=== PATIENT | male | born 1965 | race African-American/Black ===

== ENCOUNTER 2019-06-06 17:49 | Emergency (ER) | payer MEDICAID ==
[~2019-06-06] VITALS: Ht 172.7 cm; Wt 74.8 kg
[2019-06-06] MEDS ORDERED: LISINOPRIL10 MG PO (18:03)
[2019-06-06] MEDS ORDERED: ASPIR 8181 MG PO (18:03)
[2019-06-06 18:14] LABS: ABSOLUTE EOSINOPHILS 0.1 thou/uL (0.0-0.7); ABSOLUTE LYMPHOCYTES 1.5 thou/uL (0.8-5.3); ABSOLUTE MONOCYTES 0.4 thou/uL (0.0-1.2); ABSOLUTE NEUTROPHILS 1.7 thou/uL (1.6-8.1); BASOPHILS 1.2 %; LYMPHOCYTES 39.9 %; MCH 29.2 pg (26.0-34.0); MCHC 34.2 g/dL (28.0-37.0); MCV 85.4 fL (80.0-100.0); MPV 8.5 fl. (7.2-11.1); NUCLEATED RBCS 0 /100WBC; PLATELET COUNT* 265 thou/uL (150-400); POLYS 45.9 %; RBC 5.15 mil/uL (4.50-6.00); RDW-CV 17.6 % (10.5-14.5); WBC 3.8 thou/uL (4.0-11.0)
[2019-06-06 18:27] LABS: APTT 27.7 Seconds (25.0-31.3); INR 1.1; PROTIME 11.1 Seconds (9.20-11.50)
[2019-06-06 18:28] LABS: ANION GAP 8 mmol/L (7-16); BUN 10 mg/dL (7-18); CALCIUM 8.6 mg/dL (8.5-10.1); CHLORIDE 105 mmol/L (98-107); CO2 26 mmol/L (21-32); CREATININE 1.1 mg/dL (0.6-1.3); GLUCOSE 89 mg/dL (70-99); POTASSIUM 4.1 mmol/L (3.5-5.1); SODIUM 139 mmol/L (136-145)
[2019-06-06 18:40] LABS: ALBUMIN 3.7 g/dL (3.4-5.0); ALKALINE PHOSPHATASE 65 U/L (46-116); LIPASE 77 U/L (73-393); SGOT 23 U/L (15-37); SGPT 40 U/L (30-65); TOTAL BILIRUBIN 0.3 mg/dL (<0.1-1.0); TOTAL PROTEIN 7.5 g/dL (6.4-8.2); TROPONIN-I LEVEL <0.06 ng/mL (<0.06)
[2019-06-06 18:57] VITALS: BP 150/79
--- NOTE | 2019-06-07 11:07 | EKG ---
[place] [address] ELECTROCARDIOGRAM REPORT Name: LANCE BRUNO Room: [facility]#: [id number] Admission: 06/06/19 Attend Phys: Discharge: 06/06/19 Date of : 65 Report #: [id number] THIS REPORT FOR: //name// [facility] ED Test Date: 2019-06-06 Test Time: 17:50:42 Pat Name: LANCE BRUNO Department: Room: Gender: M Tax Intern: MANUEL : 1965 Requested By: Claudia Candelaria Order Number: [id number] MD: Iain June Measurements Intervals [place] Rate: 60 P: 23 VA: 208 QRS: -4 QRSD: 136 T: 134 QT: 464 QTc: 464 Interpretive Statements Sinus rhythm Borderline prolonged VA interval Left bundle branch block No previous ECG available for comparison Electronically Signed On 06-07-2019 11:07:27 CDT by Iain June [email or web address] <ELECTRONICALLY SIGNED> By: Iain June MD, FACC 06/07/19 1107 1750 1750 Iain June MD, FACC /EPI
== END 2019-06-06 18:57 | disposition home or self-care (01) ==
LOC: M.ERS 17:49
PROVIDERS: Personal Emergency Response Attendant
DX: R07.89 Other chest pain (principal); Z88.6 Allergy status to analgesic agent